=== PATIENT | male | born 1995 | race Caucasian/White ===

== ENCOUNTER 2016-08-09 11:10 | Outpatient (CLI) | payer OTHER ==
[2016-02-24 23:07] VITALS: O2SAT 99
== END 2016-08-09 11:11 | disposition home or self-care (01) | DRG 561 ==
LOC: CONVCARE 11:10
PROVIDERS: ATTEND Orthopaedic Surgery
DX: S62.610D Displaced fracture of proximal phalanx of right index finger, subsequent encounter for fracture with routine healing (principal)
CPT/HCPCS: 73140